=== PATIENT | male | born 1955 | race Caucasian/White ===

== ENCOUNTER 2023-12-02 09:39 | Outpatient (REF) | payer MEDICARE, SELFPAY | END 2023-12-02 09:40 | disposition home or self-care (01) | LOC: HO.BBR 09:39 | PROVIDERS: PCP Internal Medicine; Visit Provider Internal Medicine | DX: Z13.89 Encounter for screening for other disorder (principal) ==

== ENCOUNTER 2023-12-30 08:45 | Outpatient (REF) | payer MEDICARE, SELFPAY | END 2023-12-30 08:46 | disposition home or self-care (01) | LOC: HO.BBR 08:45 | PROVIDERS: PCP Internal Medicine; Visit Provider Internal Medicine | DX: Z13.89 Encounter for screening for other disorder (principal) ==

== ENCOUNTER 2024-02-01 08:53 | Outpatient (REF) | payer MEDICARE, SELFPAY | END 2024-02-01 08:54 | disposition home or self-care (01) | LOC: HO.BBR 08:53 | PROVIDERS: PCP Internal Medicine; Visit Provider Internal Medicine | DX: Z13.89 Encounter for screening for other disorder (principal) ==

== ENCOUNTER 2024-03-04 08:52 | Outpatient (REF) | payer MEDICARE, SELFPAY | END 2024-03-04 08:53 | disposition home or self-care (01) | LOC: HO.BBR 08:52 | PROVIDERS: PCP Internal Medicine; Visit Provider Internal Medicine | DX: Z13.89 Encounter for screening for other disorder (principal) ==

== ENCOUNTER 2024-04-01 09:51 | Outpatient (REF) | payer MEDICARE, SELFPAY | END 2024-04-01 09:52 | disposition home or self-care (01) | LOC: HO.BBR 09:51 | PROVIDERS: PCP Internal Medicine; Visit Provider Internal Medicine | DX: Z13.89 Encounter for screening for other disorder (principal) ==

== ENCOUNTER 2024-05-11 10:47 | Outpatient (REF) | payer MEDICARE, SELFPAY | END 2024-05-11 10:48 | disposition home or self-care (01) | LOC: HO.BBR 10:47 | PROVIDERS: PCP Internal Medicine; Visit Provider Internal Medicine | DX: Z13.89 Encounter for screening for other disorder (principal) ==

== ENCOUNTER 2024-11-17 09:36 | Outpatient (REF) | payer MEDICARE, SELFPAY ==
--- OUTSIDE RECORDS SUMMARY | 2024-11-17 10:08 | XMS_ITS | Clinical Summary ---
Author Organization [facility] Address [address] [place] [address] Care Team Providers Care Conservation Educator Name Role Phone Grant Richards MD Primary Care Provider Allergies Active Allergy Reactions Criticality Noted Date Comments Penicillins 10/13/2022 Medications atorvastatin (LIPITOR) 10 mg tablet Take 1 tablet (10 mg total) by mouth 1 (one) time each day. 08/04/2022 Active folic acid (FOLVITE) 1 mg tablet Take 1 tablet (1,000 mcg total) by mouth 1 (one) time each day. 04/08/2023 Active irbesartan (AVAPRO) 150 mg tablet Take 1 tablet (150 mg total) by mouth 1 (one) time each day. 09/19/2022 Active irbesartan (AVAPRO) 75 mg tablet 1 tablet daily. Active metoprolol succinate (TOPROL-XL) 25 mg 24 hr tablet Take 1 tablet (25 mg total) by mouth 1 (one) time each day. 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 High serum ferritin 10/13/2022 Encounters Date Type Department Care Team Description 11/11/2024 Telephone [facility] Hematology Oncology [address] [place] [phone] Edel Liao MA from Last 3 Months Surgical History Surgery Date Site/Laterality Comments APPENDECTOMY PROCEDURE:APPENDECTOMY SINUS SURGERY PROCEDURE:SINUS SURGERY Medical History Medical History Date Comments Aortic aneurysm (CMS/HCC) DX:Aor tic aneurysm (HCC) Hypertension DX:Hypertension Family History Medical History Relation Name Comments Hypertension Mother Relation Name Status Comments Mother Social History Tobacco Use Types Packs/Day Years Used Date Smoking Tobacco: Never Smokeless Tobacco: Never Alcohol Use Standard Drinks/Week Comments Yes 0 (1 standard drink = 0.6 oz pur e alcohol) Sex and Gender Information Value Date Recorded Sex Assigned at Not on file Legal Sex Male 12:05 AM EST Gender Identity Not on file Sexual Orientation Not on file Obstetrics History Last Filed Vital Signs Vital Sign Reading Time Taken Comments Blood Pressure 153/72 06/02/2024 9:57 AM EDT Sitting Right arm Pulse 83 06/02/2024 9:57 AM EDT Temperature - - Respiratory Rate - - Oxygen Saturation - - Inhaled Oxygen Concentration - - Weight 96 kg (211 lb 9.6 oz) 06/02/2024 9:57 AM EDT Height 180.3 cm (5' 11 ) 09/01/2022 12: 43 PM EST Body Mass Index 29.51 09/01/2022 12:43 PM EST Plan of Treatment Upcoming Encounters Date Type Department Care Team (Late st Contact Info) Description 06/02/2025 9:15 AM EDT Office Visit [facility] Hematology Oncology [address] [place] [address] Mane-Yamilet Elder MD [address] [place] [address] Health Maintenance Due Date Last Done Comments DTaP,Tdap,and Td Vaccines (1 - Tdap) 1976 Pneumococcal Vaccine: 50+ Ye ars (1 of 1 - PCV) 2007 Zoster Vaccines (1 of 2) 2007 Cholesterol Screening (Lipid Panel) 09/14/2022 Colorectal Cancer Screening: Colonoscopy 09/14/2022 Depression Screening 09/14/2022 Falls Risk Assessment 09/14/2022 Hepatitis C Screening 09/14/2022 Social Influencers of Health Screening 09/14/2022 Hypertension/CHF/CAD Annual BMP Blood Test 09/17/2022 COVID-19 Vaccine ( - 2023-2 5 season) 2024 Influenza Vaccine (#1) 2024 RSV Immunization Patients 60 + Years Old (1 - 1-dose 75+ series) 2032 HIB Vaccines Aged Out No longer eligi ble based on patient's age to complete this topic HPV Vaccines Aged Out No longer eligi ble based on patient's age to complete this topic Hepatitis A Vaccines Aged Out No long er eligible based on patient's age to complete this topic Hepatitis B Vaccines Aged Out No long er eligible based on patient's age to complete this topic IPV Vaccines Aged Out No longer eligi ble based on patient's age to complete this topic MMR Vaccines Aged Out No longer eligi ble based on patient's age to complete this topic Meningococcal ACWY Vaccine Aged Out N o longer eligible based on patient's age to complete this topic Meningococcal B Vacine Aged Out No lo nger eligible based on patient's age to complete this topic RSV Immunization Patients Un peggy 20 months Aged Out No longer eligible b ased on patient's age to complete this topic Varicella Vaccines Aged Out No longer eligible based on patient's age to complete this topic Insurance Care Teams Conservation Educator Relationship Specialty Start Date End Date Grant Richards MD PCP - General Internal Medicine 12/29/12
--- OUTSIDE RECORDS SUMMARY | 2024-11-17 10:08 | XMS_ITS | Clinical Summary ---
Author Organization [facility] Address [address] [place] [address] Care Team Providers Care Inclusion Teacher Name Role Phone Grant Richards MD Primary Care Provider + [phone] Allergies Active Allergy Reactions Criticality Noted Date Comments Penicillins 10/13/2022 Medications Medication Sig Dispensed Refills Start Date End Date Status atorvastatin (LIPITOR) tablet 10 mg Take 1 tablet (10 mg total) by mouth daily. 0 08/04/2022 Active irbesartan (AVAPRO) 150 MG tablet Take 1 tablet (150 mg total) by mouth daily. 0 09/19/2022 Active metoprolol succinate (TOPROL-XL) 24 hr tablet 25 mg Take 1 tablet (25 mg total) by mouth daily. 0 08/28/2022 Active folic acid (FOLVITE) tablet 1 mg TAKE 1 TABLET BY MOUTH EVERY DAY 90 tablet 0 04/08/2023 Active doxepin (SINEquan) 10 MG capsule Take 1 capsule (10 mg total) by mouth every night at bedtime. 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 High serum ferritin 10/13/2022 Family History Medical History Relation Name Comments Hypertension Mother Relation Name Status Comments Mother Social History Tobacco Use Types Packs/Day Years Used Date Smoking Tobacco: Never Smokeless Tobacco: Never Tobacco Cessation:Counseling Given: Not Answered Alcohol Use Standard Drinks/Week Comments Yes 0 (1 standard drink = 0.6 oz pur e alcohol) few times a year Sex and Gender Information Value Date Recorded Sex Assigned at Male 09/01/2022 4:14 PM EST Gender Identity Not on file Sexual Orientation Not on file Job Start Date Occupation Industry Not on file Not on file Not on file Last Filed Vital Signs Vital Sign Reading Time Taken Comments Blood Pressure 153/72 06/02/2024 9:57 AM EDT Pulse 83 06/02/2024 9:57 AM EDT Temperature 36.6 ??C (97.8 ??F) 06/02/2024 9:57 AM ED T Respiratory Rate - - Oxygen Saturation 98% 06/02/2024 9:57 AM EDT Inhaled Oxygen Concentration - - Weight 96 kg (211 lb 9.6 oz) 06/02/2024 9:57 AM EDT Height - - Body Mass Index - - Plan of Treatment Health Maintenance Due Date Last Done Comments Hepatitis C Screening 1957 COVID-19 Vaccine (#1) 1957 Depression Screening 1969 Preventative Health Evaluation 1975 DTap / Tdap / Td (1 - Tdap) 1976 Colon Cancer Screening (Colonoscopy) 2002 Shingrix-Zoster Vaccine (1 of 2) 2007 Fall Risk Assessment 2022 Pneumococcal Vaccine (1 of 1 - PCV) 2022 Influenza Vaccine (#1) 2024 RSV Adult > 60+ Yrs or Pregn ant (1 - 1-dose 75+ series) 2032 Hepatitis B Vaccines Aged Out No long er eligible based on patient's age to complete this topic RSV Ped < 20 months Aged Out No longe r eligible based on patient's age to complete this topic Care Teams Inclusion Teacher Relationship Specialty Start Date End Date Grant Richards MD [address] [facility] [place] [address] [place] [address] PCP - General Internal Medicine 09/01/22
--- OUTSIDE RECORDS SUMMARY | 2024-11-17 10:08 | XMS_ITS | Encounter Summary ---
Author Organization [facility] Address [address] [place] [address] Care Team Providers Care Healthcare Consulting Manager Name Role Phone Grant Richards MD Primary Care Provider Encounter Details Date Type Department Care Team (Late st Contact Info) Description 11/11/2024 Telephone [facility] Hematology Oncology [address] [place] [address] Edel Liao MA Social History Tobacco Use Types Packs/Day Years Used Date Smoking Tobacco: Never Smokeless Tobacco: Never Alcohol Use Standard Drinks/Week Comments Yes 0 (1 standard drink = 0.6 oz pur e alcohol) Sex and Gender Information Value Date Recorded Sex Assigned at Not on file Legal Sex Male 12:05 AM EST Gender Identity Not on file Sexual Orientation Not on file documented as of this encounter Progress Notes * Alessandra Aguirre MA - 11/11/2024 3:51 PM EST I spoke with Cash and reviewed results and doctors recommendation for phlebotomy. Patient agreed with the plan. Advised him I faxed over the phlebotomy order to madeleine. * Yamilet Dailey MD - 11/11/2024 2:53 PM EST Ferritin, previously 71, now increased to 168, restart phlebotomy, will order 1 unit blood to be removed every 3 months, hold if hemoglobin less than 12 please let him know * Edel Liao MA - 11/11/2024 2:05 PM EST According to last ov note patient was to get labs done in September by his PCP and he did. I printedand scanned them in patient chart today. Patient would like Md to revise the lab results and give input. Cash [phone] documented in this encounter Plan of Treatment Upcoming Encounters Date Type Department Care Team (Late st Contact Info) Description 06/02/2025 9:15 AM EDT Office Visit [facility] Hematology Oncology [address] [place] [phone] Mane-Yamilet Elder MD [address] [place] [address] documented as of this encounter Visit Diagnoses Not on filedocumented in this encounter Care Teams Healthcare Consulting Manager Relationship Specialty Start Date End Date Grant Richards MD PCP - General Internal Medicine 12/29/12 documented as of this encounter
== END 2024-11-17 09:37 | disposition home or self-care (01) ==
LOC: HO.BBR 09:36
PROVIDERS: Visit Provider Internal Medicine
DX: Z13.89 Encounter for screening for other disorder (principal)

== ENCOUNTER 2025-02-14 10:42 | Outpatient (REF) | payer MEDICARE, SELFPAY ==
--- OUTSIDE RECORDS SUMMARY | 2025-02-14 11:58 | XMS_ITS | Clinical Summary ---
Author Organization [facility] Address [id number] [place] [phone] Care Team Providers Care Traffic Observer Name Role Phone Grant Richards MD Primary Care Provider [phone] Allergies Active Allergy Reactions Criticality Noted Date [...] Secondary erythrocytosis 10/16/2022 High serum ferritin 10/13/2022 Surgical History Surgery Date Site/Laterality Comments APPENDECTOMY PROCEDURE:APPENDECTOMY SINUS SURGERY PROCEDURE:SINUS SURGERY Medical History Medical History Date Comments Aortic aneurysm (CMS/HCC V24) DX :Aortic aneurysm (HCC) Hypertension DX:Hypertension Family History Medical [...] Description 06/02/2025 9:15 AM EDT Office Visit [facility] Hematology Oncology [address] [place] [address] Mane-Yamilet Elder MD [address] [place] [address] Health Maintenance Due Date Last [...] - 2023-2 5 season) 2024 Influenza Vaccine (Season Ended) 2025 RSV Immunization Adult Patie nts (1 - 1-dose 75+ series) 2032 HIB [...] age to complete this topic Meningococcal B Vaccine Aged Out No l onger eligible based on patient's age to complete this topic RSV Immunization Patients Un peggy 20 months Aged Out No longer eligible b ased on patient's age to complete this topic Varicella Vaccines Aged Out No longer eligible based on patient's age to complete this topic Insurance Care Teams Traffic Observer Relationship Specialty Start Date End Date Grant Richards MD PCP - General Internal Medicine 12/29/12
--- OUTSIDE RECORDS SUMMARY | 2025-02-14 11:58 | XMS_ITS | Clinical Summary ---
Author Organization [facility] Address [address] [place] [address] Care Team Providers Care Rf Microwave Engineer Name Role Phone Grant Richards MD Primary Care Provider + [phone] Allergies Active Allergy Reactions Criticality Noted Date [...] age to complete this topic Care Teams Rf Microwave Engineer Relationship Specialty Start Date End Date Grant Richards MD [address] [facility] [address] [place] [address] PCP - General Internal Medicine 09/01/22
== END 2025-02-14 10:43 | disposition home or self-care (01) ==
LOC: HO.BBR 10:42
PROVIDERS: PCP Internal Medicine; Visit Provider Internal Medicine
DX: Z13.89 Encounter for screening for other disorder (principal)

== ENCOUNTER 2025-05-17 08:49 | Outpatient (REF) | payer MEDICARE, SELFPAY ==
--- OUTSIDE RECORDS SUMMARY | 2025-05-17 09:07 | XMS_ITS | Clinical Summary ---
Author Organization [facility] Address [address] [place] [phone] Care Team Providers Care Flap Curer Name Role Phone Grant Richards MD Primary Care Provider [phone] Allergies Active Allergy Reactions Criticality Noted Date [...] Description 06/02/2025 9:15 AM EDT Office Visit [facility] Hematology Oncology [address] [place] [address] Mane-Yamilet Elder MD [address] [place] [address] Health Maintenance Due Date Last Done Comments DTaP,Tdap,and Td Vaccines (1 - Tdap) 1976 Pneumococcal Vaccine: 50+ Ye ars (1 of 1 - PCV) 2007 Zoster Vaccines (1 of 2) 2007 RSV Immunization Adult Patie nts (1 - Risk 60-74 years 1-dose series) 2017 Cholesterol Screening (Lipid Panel) 09/14/2022 Colorectal Cancer Screening: Colonoscopy 09/14/2022 Falls Risk Assessment 09/14/2022 Hepatitis C Screening 09/14/2022 Social Influencers of Health Screening 09/14/2022 Hypertension/CHF/CAD Annual BMP Blood Test 09/17/2022 COVID-19 Vaccine (1 - 2023-2 5 season) 2024 Depression Screening 10/05/2024 Influenza Vaccine (#1) 2025 HIB Vaccines Aged Out No longer eligi [...] to complete this topic Insurance Care Teams Flap Curer Relationship Specialty Start Date End Date Grant Richards MD PCP - General Internal Medicine 12/29/12
--- OUTSIDE RECORDS SUMMARY | 2025-05-17 09:07 | XMS_ITS | Clinical Summary ---
Author Organization [facility] Address [address] [place] [address] Care Team Providers Care Culinary Worker Name Role Phone Grant Richards MD Primary Care Provider + [phone] Allergies Active Allergy Reactions Criticality Noted Date [...] 83 06/02/2024 9:57 AM EDT Temperature 36.6 C (97.8 F) 06/02/2024 9:57 AM EDT Respiratory Rate - - Oxygen Saturation 98% [...] 1 - PCV) 2022 Influenza Vaccine (#1) 2025 RSV Adult > 60+ Yrs or Pregn ant (1 - 1-dose 75+ series) 2032 Hepatitis B Vaccines Aged Out No long er eligible based on patient's age to complete this topic RSV Ped < 20 months Aged Out No longe r eligible based on patient's age to complete this topic Care Teams Culinary Worker Relationship Specialty Start Date End Date Grant Richards MD [address] [facility] [address] [place] [address] PCP - General Internal Medicine 09/01/22
== END 2025-05-17 08:50 | disposition home or self-care (01) ==
LOC: HO.BBR 08:49
PROVIDERS: PCP Internal Medicine; Visit Provider Internal Medicine
DX: Z13.89 Encounter for screening for other disorder (principal)